=== PATIENT | male | born 1985 | race Caucasian/White ===

== ENCOUNTER 2020-04-16 01:06 | Emergency (ER) | payer SELFPAY ==
[~2020-04-16] VITALS: Ht 177.8 cm; Wt 86.0 kg
[2020-04-16 01:09] VITALS: BP 121/76
[2020-04-16] MEDS ORDERED: MELA3TAB71 MT (01:29)
== END 2020-04-16 01:48 | disposition home or self-care (01) ==
LOC: ER 01:06
DX: Z60.5 Target of (perceived) adverse discrimination and persecution (principal); F41.9 Anxiety disorder, unspecified; H91.3 Deaf nonspeaking, not elsewhere classified
CPT/HCPCS: 93005; 99283